=== PATIENT | male | born 1960 | race Caucasian/White ===

== ENCOUNTER 2018-11-22 22:02 | Emergency (ER) | payer OTHER ==
[2018-11-22 22:08] VITALS: BP 165/90
--- NOTE | 2018-11-22 22:19 | EDPHY ---
H & P Stated Complaint: Dog bite right arm Time Seen by Provider: 11/22/18 22:18 - Personal History Current Tetanus Diphtheria and Acellular Pertussis (TDAP): Unsure - Medical/Surgical History Hx Asthma: No Hx Chronic Respiratory Disease: No Hx Diabetes: No Hx Cardiac Disease: No Hx Renal Disease: No Hx Cirrhosis: No Hx Alcoholism: No Hx HIV/AIDS: No Hx Splenectomy or Spleen Trauma: No Other PMH: none - Social History Smoking Status: Never smoked Constitutional: Initial Vital Signs Temperature (C) 36.6 C 11/22/18 22:04 Heart Rate 90 11/22/18 22:04 Respiratory Rate 16 11/22/18 22:04 Blood Pressure 165/90 H 11/22/18 22:04 O2 Sat (%) 94 11/22/18 22:04 O2 Delivery Mode Room Air Allergies/Adverse Reactions: No Known Allergies Allergy (Unverified 11/22/18 22:08) Home Medications: Medication Instructions Recorded Amoxicillin/Clavulanate Pot 875 mg PO BID #20 tab 11/22/18 [Augmentin 875 MG TAB (RX)] Hydrocodone/APAP 5/325 [[employer] 1 - 2 each PO Q4-6PRN PRN #20 tab 11/22/18 5/325] Medical Decision Making ED Course/Re-evaluation: CHIEF COMPLAINT: Dog bite to right arm HISTORY OF PRESENT ILLNESS: The patient is a 57 y/o male complaining of a dog bite to his right arm today. The patient was working at [employer] when a dog bit his arm. He is unsure if the dog is up-to-date on it's vaccinations. His boss has the dog's information, but is not in the room. He is unsure when his last tetanus vaccination was. No fever, headache, body aches, lightheadedness, chest pain, heart palpitations, shortness of breath, cough, abdominal pain, urinary or bowel complaints, numbness, paresthesias. REVIEW OF SYSTEMS: A comprehensive 10 system review of systems is otherwise negative aside from elements mentioned in the history of present illness and medical decision making. PHYSICAL EXAM: HR, BP, O2 Sat, RR. Temp noted General Appearance: Alert, well hydrated, appropriate, and non-toxic appearing. Head: Atraumatic without scalp tenderness or obvious injury Eyes: Pupils equal, round, reactive to light and accommodation, EOMI, no trauma , no injection. Ears: Clear bilaterally, no perforation, normal landmarks Nose: Atraumatic, no rhinorrhea, clear. Throat: There is no erythema or exudates, no lesions, normal tonsils, mucus membranes moist. Neck: Supple, 2+ carotid upstroke, nontender, no lymphadenopathy. Musculoskeletal: Abrasion and puncture wounds to right forearm. Otherwise normal active ROM of all extremities, atraumatic. Neurological: Alert, appropriate, and interactive. Skin: No rashes, good turgor, no nodules on palpation. Past medical history: Denies Past surgical history: Denies Family history: Denies Social history: Employed at [employer], , does not abuse drugs or alcohol. DIAGNOSTICS/PROCEDURES/CRITICAL CARE TIME: Not indicated. DIFFERENTIAL DIAGNOSIS: The differential diagnosis for the patient's arm injury included but was not limited to dog bite, puncture wound, laceration, abrasion, hematoma, fracture, contusion, muscular strain, and meniscus injury. MEDICAL DECISION MAKING: The patient is a 57 y/o male presenting with a dog bite to his right arm today. The patient was working at [employer] when a dog bit his arm. He is unsure if the dog is up-to-date on it's vaccinations. His boss has the dog's information, but is not in the room. [facility] has been called. We will give the patient a Tetanus vaccination. Patients abrasion and puncture wounds will be copiously cleaned, have Bacitracin applied, and bandaged. Laboratory and imaging findings are not indicated. I will prescribe the patient Augmentin; his first dose was given prior to discharge. I will also prescribe him [employer] for pain. Return precautions provided; patient is comfortable with this plan. 2255: Patient met with [facility] regarding the dog bite. Patient is now safe to be discharged home. - Data Points Medications Given: Discontinued Medications Hydrocodone Bitart/Acetaminophen ([employer] 5/325mg Prepack#6) 1 btl TAKEHOME EDNOW ONE Stop: 11/22/18 22:22 Last Admin: 11/22/18 22:27 Dose: 1 btl Amoxicillin/Clavulanate Potassium (Augmentin 875mg) 875 mg PO EDNOW ONE PRN Reason: Protocol Stop: 11/22/18 22:22 Last Admin: 11/22/18 22:27 Dose: 875 mg Diphtheria/Tetanus/Acell Pertussis (Boostrix) 0.5 ml IM .ONCE ONE Stop: 11/22/18 22:24 Last Admin: 11/22/18 22:28 Dose: 0.5 ml Departure - Departure Disposition: Home, Routine, Self-Care Clinical Impression: Abrasion Dog bite of right arm Qualifiers: Encounter type: initial encounter Qualified Code(s): S41.151A - Open bite of right upper arm, initial encounter Contusion Qualifiers: Encounter type: initial encounter Contusion area: forearm Laterality: right Qualified Code(s): S50.11XA - Contusion of right forearm, initial encounter Condition: Good Instructions: Hydrocodone/Acetaminophen (By mouth), Animal Bite (ED), Contusion in Adults (ED), Abrasion (ED), Skin Tear (ED) Additional Instructions: 1. Take Augmentin as prescribed. Make sure to take the entire prescription. 2. Take [employer] as prescribed. 3. Return to the Emergency Department for fever, redness, discharge from wound, increasing pain or other worsening of condition. Referrals: [facility],. [Clinic] - As per Instructions Prescriptions: Amoxicillin/Clavulanate Pot [Augmentin 875 MG TAB (RX)] 875 mg PO BID #20 tab Hydrocodone/APAP 5/325 [[employer] 5/325] 1 - 2 each PO Q4-6PRN PRN #20 tab PRN Reason: Pain, Moderate Report Scribed for: Murphy Case Report Scribed by: Swapna Schwartz Date of Report: 11/22/18 Time of Report: 23:01
[2018-11-22] MEDS ORDERED: HYDROCOD/APAP 5/325 PREPACK#6 BTL TAKEHOME ONE (22:21)
[2018-11-22] MEDS ORDERED: AMOXICILLIN/CLAVULANATE POT 875/125 MG TAB PO ONE (22:21)
[2018-11-22] MEDS ORDERED: TDAP ADULT 0.5 ML INJ (BOOSTRIX) IM ONE (22:23)
== END 2018-11-22 22:59 | disposition home or self-care (01) ==
DX: S41.151A Open bite of right upper arm, initial encounter (principal); S50.11XA Contusion of right forearm, initial encounter; Z23 Encounter for immunization; W54.0XXA Bitten by dog, initial encounter; Y99.0 Civilian activity done for income or pay